=== PATIENT | female | born 1950 | race Caucasian/White ===

== ENCOUNTER → 2018-11-16 18:26 | Outpatient (ROUT) | payer MEDICARE, MEDICAID, SELFPAY | PROVIDERS: Visit Provider Internal Medicine | DX: L08.9 Local infection of the skin and subcutaneous tissue, unspecified (principal) | CPT/HCPCS: 87070; 87077; 87186; 87205 ==

== ENCOUNTER → 2022-02-20 09:53 | Outpatient (CLI) | payer MEDICARE, MEDICAID, SELFPAY | PROVIDERS: PCP Physician Assistant; Referring Provider Physician Assistant; Visit Provider Nurse Practitioner Family | DX: L95.8 Other vasculitis limited to the skin (principal); L98.492 Non-pressure chronic ulcer of skin of other sites with fat layer exposed; I73.1 Thromboangiitis obliterans [Buerger's disease]; Z87.891 Personal history of nicotine dependence | CPT/HCPCS: 87070; 87075; 87205; 97597; 99204; 99213 ==

== ENCOUNTER → 2022-03-06 10:04 | Outpatient (CLI) | payer MEDICARE, MEDICAID, SELFPAY | PROVIDERS: PCP Physician Assistant; Referring Provider Physician Assistant; Visit Provider Nurse Practitioner Family | DX: L98.492 Non-pressure chronic ulcer of skin of other sites with fat layer exposed (principal); I73.1 Thromboangiitis obliterans [Buerger's disease]; M86.642 Other chronic osteomyelitis, left hand; M86.641 Other chronic osteomyelitis, right hand; Z87.891 Personal history of nicotine dependence | CPT/HCPCS: 11042; 97597; 99214 ==

== ENCOUNTER → 2022-03-20 14:55 | Outpatient (CLI) | payer MEDICARE, MEDICAID, SELFPAY | PROVIDERS: PCP Physician Assistant; Referring Provider Physician Assistant; Visit Provider Nurse Practitioner Family | DX: L98.492 Non-pressure chronic ulcer of skin of other sites with fat layer exposed (principal); I73.1 Thromboangiitis obliterans [Buerger's disease]; M86.642 Other chronic osteomyelitis, left hand; M86.641 Other chronic osteomyelitis, right hand; Z87.891 Personal history of nicotine dependence; L95.8 Other vasculitis limited to the skin | CPT/HCPCS: 11042; 97597; 99212 ==

== ENCOUNTER → 2022-04-10 09:49 | Outpatient (CLI) | payer MEDICARE, MEDICAID, SELFPAY | PROVIDERS: PCP Physician Assistant; Referring Provider Orthopaedic Surgery; Visit Provider Nurse Practitioner Family | DX: S61.207A Unspecified open wound of left little finger without damage to nail, initial encounter (principal); S61.303A Unspecified open wound of left middle finger with damage to nail, initial encounter; S61.302A Unspecified open wound of right middle finger with damage to nail, initial encounter; I73.1 Thromboangiitis obliterans [Buerger's disease]; Z87.891 Personal history of nicotine dependence; M86.642 Other chronic osteomyelitis, left hand; M86.641 Other chronic osteomyelitis, right hand | CPT/HCPCS: 11042; 97597; 99214 ==

== ENCOUNTER → 2022-04-17 09:50 | Outpatient (CLI) | payer MEDICARE, MEDICAID, SELFPAY | PROVIDERS: PCP Physician Assistant; Referring Provider Physician Assistant; Visit Provider Nurse Practitioner Family | DX: S61.207A Unspecified open wound of left little finger without damage to nail, initial encounter (principal); S61.303A Unspecified open wound of left middle finger with damage to nail, initial encounter; S61.302A Unspecified open wound of right middle finger with damage to nail, initial encounter | CPT/HCPCS: 15275; 97597; Q4195 ==

== ENCOUNTER → 2022-04-24 12:01 | Outpatient (CLI) | payer MEDICARE, MEDICAID, SELFPAY | PROVIDERS: PCP Physician Assistant; Referring Provider Physician Assistant; Visit Provider Nurse Practitioner Family | DX: S61.207A Unspecified open wound of left little finger without damage to nail, initial encounter (principal); S61.201A Unspecified open wound of left index finger without damage to nail, initial encounter; S61.303A Unspecified open wound of left middle finger with damage to nail, initial encounter; S61.302A Unspecified open wound of right middle finger with damage to nail, initial encounter; I73.1 Thromboangiitis obliterans [Buerger's disease]; Z87.891 Personal history of nicotine dependence; M86.642 Other chronic osteomyelitis, left hand; M86.641 Other chronic osteomyelitis, right hand | CPT/HCPCS: 15275; 97597; 99213; Q4196 ==

== ENCOUNTER → 2022-05-22 10:22 | Outpatient (CLI) | payer MEDICARE, MEDICAID, SELFPAY | PROVIDERS: PCP Physician Assistant; Referring Provider Physician Assistant; Visit Provider Nurse Practitioner Family | DX: L98.492 Non-pressure chronic ulcer of skin of other sites with fat layer exposed (principal); M86.642 Other chronic osteomyelitis, left hand; M86.641 Other chronic osteomyelitis, right hand; L95.8 Other vasculitis limited to the skin; I73.1 Thromboangiitis obliterans [Buerger's disease]; Z87.891 Personal history of nicotine dependence | CPT/HCPCS: 97597; 99212; 99213 ==

== ENCOUNTER → 2022-06-05 10:12 | Outpatient (CLI) | payer MEDICARE, MEDICAID, SELFPAY | PROVIDERS: PCP Physician Assistant; Referring Provider Physician Assistant; Visit Provider Nurse Practitioner Family | DX: L98.492 Non-pressure chronic ulcer of skin of other sites with fat layer exposed (principal); I73.1 Thromboangiitis obliterans [Buerger's disease]; M86.642 Other chronic osteomyelitis, left hand; M86.641 Other chronic osteomyelitis, right hand; I73.00 Raynaud's syndrome without gangrene; R60.0 Localized edema; Z87.891 Personal history of nicotine dependence | CPT/HCPCS: 97597 ==

== ENCOUNTER → 2022-06-19 10:12 | Outpatient (CLI) | payer MEDICARE, MEDICAID, SELFPAY | PROVIDERS: PCP Physician Assistant; Referring Provider Physician Assistant; Visit Provider Nurse Practitioner Family | DX: S61.207A Unspecified open wound of left little finger without damage to nail, initial encounter (principal); I73.1 Thromboangiitis obliterans [Buerger's disease]; Z87.891 Personal history of nicotine dependence; M86.642 Other chronic osteomyelitis, left hand; M86.641 Other chronic osteomyelitis, right hand; I73.00 Raynaud's syndrome without gangrene; L95.8 Other vasculitis limited to the skin | CPT/HCPCS: 97597; 99212; 99213 ==

== ENCOUNTER → 2022-07-10 09:59 | Outpatient (CLI) | payer MEDICARE, MEDICAID, SELFPAY | PROVIDERS: PCP Physician Assistant; Referring Provider Physician Assistant; Visit Provider Nurse Practitioner Family | DX: S61.207D Unspecified open wound of left little finger without damage to nail, subsequent encounter (principal); I73.1 Thromboangiitis obliterans [Buerger's disease]; Z87.891 Personal history of nicotine dependence; M86.642 Other chronic osteomyelitis, left hand; M86.641 Other chronic osteomyelitis, right hand; I73.00 Raynaud's syndrome without gangrene | CPT/HCPCS: 99213 ==